=== PATIENT | male | born 1950 | race American Indian/Alaskan Native ===

== ENCOUNTER 2019-03-06 06:26 | Outpatient (CLI) | payer OTHER ==
[2019-02-25 12:20] LABS: Basophils # (Auto) 0.1 K/mm3 (0.0-0.1); Basophils % (Auto) 1.1 % (0.0-1.8); Eosinophils # (Auto) 0.2 K/mm3 (0.0-0.4); Eosinophils % (Auto) 2.9 % (0.0-4.3); Hematocrit 37.4 % (35.5-45.6); Hemoglobin 11.7 gm/dl (11.8-15.2); Lymphocytes # (Auto) 1.7 K/mm3 (1.2-5.4); Lymphocytes % (Auto) 24.7 % (13.4-35.0); Mean Corpuscular HGB Conc 31 % (32-34); Mean Corpuscular Volume 73 fl (84-94); Monocytes # (Auto) 0.9 K/mm3 (0.0-0.8); Monocytes % (Auto) 12.8 % (0.0-7.3); Platelet Count 256 K/mm3 (140-440); Red Blood Count 5.14 M/mm3 (3.65-5.03); Red Cell Distribution Width 17.8 % (13.2-15.2)
--- NOTE | 2019-02-25 12:21 | Anesthesia Consultation ---
Anesthesia Consult and Med Hx Date of service: 03/06/19 - Airway Anesthetic Teeth Evaluation: Crowns ROM Head & Neck: Adequate Mental/Hyoid Distance: Adequate Mallampati Class: Class II Intubation Access Assessment: Probably Good - Pre-Operative Health Status ASA Pre-Surgery Classification: ASA3 Proposed Anesthetic Plan: General (Pt declines SAB and requests GA\) Nerve Block: AC - Pulmonary Hx Smoking: Yes (STOPPED X 13 YRS) Hx Sleep Apnea: No (PHOEBE PRRE SCREEN HIGH RISK) - Cardiovascular System Hx Hypertension: Yes (X 30 YRS. Cardiomyopathy-ECHO EF 40-45%. Grade 1 Diastolic Dysfunc) Hx Heart Attack/AMI: No (Chronic systolic CHF-stable) - Central Nervous System Hx Back Pain: Yes (NECK PAIN) - Gastrointestinal Hx Gastroesophageal Reflux Disease: Yes - Endocrine Hx Non-Insulin Dependent Diabetes: Yes - Hematic Hx Anemia: No - Other Systems Hx Cancer: Yes Hx Obesity: Yes
[2019-02-25 12:48] LABS: Alanine Aminotransferase 7 units/L (7-56); Albumin 3.8 g/dL (3.9-5); BUN/Creatinine Ratio 20; Blood Urea Nitrogen 18 mg/dL (9-20); Calcium 9.4 mg/dL (8.4-10.2); Hemolysis Index 8
[~2019-03-06 06:26] MED LIST: ceFAZolin/STERILE WATER 2 GM/20 ML SYRINGE IV NR
--- NOTE | 2019-03-06 06:57 | XRay Report ---
RIGHT KNEE 3 VIEWS INDICATION / CLINICAL INFORMATION: pre op evaluation COMPARISON: None available. FINDINGS: BONES and JOINT(S): No acute fracture or subluxation. There is severe tricompartmental osteoarthritis . SOFT TISSUES: Synovial proliferation versus a small effusion is seen along the suprapatellar bursa. T here is mild generalized edema. ADDITIONAL FINDINGS: None. IMPRESSION: 1. No acute abnormality of the right knee. 2. Severe osteoarthritis. Signer Name: Larry Pizarro MD Signed: 03/06/2019 6:52 AM Workstation Name: [id number]
--- NOTE | 2019-03-06 07:39 | Anesthesia Day of Surgery ---
Anesthesia Day of Surgery - Day of Surgery Patient Examined: Yes Patient H&P Reviewed: Yes Patient is NPO: Yes Beta Blockers: Yes (Today, pt is tachy with ectopy. Rhythm is constantly changing. Will defer ) Cardiac Clearance: No (surgery so pt can get it evaluated. Change in condition from PAT-HR 50)
[2019-03-06 10:23] VITALS: BP 145/82
== END 2019-03-06 07:55 | disposition home or self-care (01) ==
LOC: UNDOADMIN 06:26 → 3A 06:26 → OR 06:26 → UNDODISIN 07:55 → OR 07:55 → EDSTATUS 08:00
PROVIDERS: ATTEND Orthopaedic Surgery
DX: M17.11 Unilateral primary osteoarthritis, right knee (principal)
CPT/HCPCS: 36415; 80053; 82962; 85025; 93005; 93010